=== PATIENT | female | born 1985 | race Caucasian/White ===

== ENCOUNTER 2020-03-12 15:44 | Inpatient (IN) | payer SELFPAY ==
[2020-03-12 17:30] VITALS: BP 146/86
[2020-03-12] MEDS: NS 1,000 ML IV SCH (18:14)
[2020-03-12] MEDS ORDERED: PERCOCET 5MG/325MG TAB PO PRN ×2 (18:30)
[2020-03-12 19:04] LABS: BASO % 0.1 % (0.0-1.0); EOS % 0.1 % (0.0-3.0); HEMOGLOBIN 7.3 g/dl (12.0-15.5); LYMPH # 2.3 10^3/uL (1.5-5.0); MEAN CORPUSCULAR HGB CONC 33.2 g/dl (32.0-36.5); MEAN CORPUSCULAR VOLUME 90.5 fl (80.0-96.0); MONO # 1.4 10^3/uL (0.0-0.8); MONO % 9.1 % (0.0-5.0); NEUTROPHILS # 11.7 10^3/uL (1.5-8.5); NEUTROPHILS % 75.2 % (36.0-66.0); RED BLOOD COUNT 2.43 10^6/uL (4.00-5.40); WHITE BLOOD COUNT 15.6 10^3/uL (4.0-10.0)
[2020-03-12 19:14] LABS: INR 0.92; PROTHROMBIN TIME 12.5 SECONDS (12.5-14.3)
[2020-03-12 19:15] LABS: FIBRINOGEN 295 MG/DL (221-452)
[2020-03-12 19:22] LABS: ALBUMIN 1.9 GM/DL (3.2-5.2); BILIRUBIN,TOTAL 0.7 MG/DL (0.2-1.0); CALCIUM LEVEL 8.1 MG/DL (8.5-10.1); CREATININE FOR GFR 1.93 MG/DL (0.55-1.30); GLOMERULAR FILTRATION RATE 31.5 (>60); POTASSIUM SERUM 4.3 MEQ/L (3.5-5.1); TOTAL PROTEIN 4.3 GM/DL (6.4-8.2)
[2020-03-12 19:34] LABS: PLATELET COUNT, AUTOMATED 95 10^3/uL (150-450)
[2020-03-12 19:38] LABS: D-DIMER QUANT > 4000 ng/ml (<500)
[2020-03-12 20:00] VITALS: BP 160/85
[2020-03-12 22:04] LABS: MAGNESIUM LEVEL 2.6 MG/DL (1.8-2.4)
[2020-03-13] VITALS (17 sets, daily range): BP systolic 136–200; BP diastolic 74–110
[2020-03-13 00:45] LABS: BASO % 0.1 % (0.0-1.0); EOS % 0.1 % (0.0-3.0); LYMPH # 2.2 10^3/uL (1.5-5.0); LYMPH % 14.1 % (24.0-44.0); MEAN CORPUSCULAR HEMOGLOBIN 29.8 pg (27.0-33.0); MEAN CORPUSCULAR HGB CONC 32.9 g/dl (32.0-36.5); MEAN CORPUSCULAR VOLUME 90.8 fl (80.0-96.0); MONO # 1.3 10^3/uL (0.0-0.8); NEUTROPHILS % 77.3 % (36.0-66.0); RED BLOOD COUNT 2.28 10^6/uL (4.00-5.40); WHITE BLOOD COUNT 15.6 10^3/uL (4.0-10.0)
[2020-03-13 00:50] LABS: HEMATOCRIT 20.7 % (36.0-47.0); PLATELET COUNT, AUTOMATED 87 10^3/uL (150-450)
[2020-03-13 00:54] LABS: INR 0.91; PARTIAL THROMBOPLASTIN TIME 23.6 SECONDS (24.2-38.5); PROTHROMBIN TIME 12.4 SECONDS (12.5-14.3)
[2020-03-13 00:59] LABS: HEMOGLOBIN 6.8 g/dl (12.0-15.5)
[2020-03-13] MEDS: LABETALOL 200 MG TAB PO SCH ×4 (03:41→19:46)
[2020-03-13] MEDS: NS 1,000 ML IV SCH (09:08)
--- NOTE | 2020-03-13 10:07 | HPEPDOC ---
General Date of Admission Mar 12, 2020 at 17:28 Date of Service: Mar 12, 2020 Chief Complaint The patient is a 35-year-old female admitted with a reason for visit of Severe Pre Eclampsia,S/P Abruption W/ Blood Loss. Source: Patient, RN/MD History of Present Illness Consultation report: Consultation requested by Dr Varghese Consultation for : DIC HPI: 35 year old female with PMH of chronic hypertension, obesity, pre- eclampsia, gestational DM, depression had an abruptio placentae yesterday and had emergent C/S at [facility] at 8:30 pm at 35 weeks with loss of about 1500 cc of blood. She received 4 units of prbc, 1 unit of FFP and 1 unit of platelet and 5 liters of IVf. She was transferred her under Dr Arita's service for HELLP and possible early DIC after severe blood loss s/p complete abruption. Hospitalist consulted for management of possible DIC. Patient complained of appropriate pain at the C/S site about 4/10 dull aching. Denied any nausea or vomiting, has not passed flatus yet. Home Medications Scheduled Amlodipine Besylate (Amlodipine Besylate) 10 Mg Tablet, 10 MG PO DAILY Hydralazine HCl (Hydralazine HCl) 50 Mg Tablet, 50 MG PO QID Labetalol HCl (Labetalol HCl) 200 Mg Tablet, 400 MG PO TID Scheduled PRN Ibuprofen (Ibuprofen) 600 Mg Tablet, 1 TAB PO TIDP PRN for pain with food Allergies Coded Allergies: No Known Allergies (Unverified , 03/13/20) Past Medical History Medical History Chronic hypertension Depression Obesity preecclampsia gestational DM. Family History Significant Family History: Hypertension Social History * Smoker: Denies Alcohol: Denies Drugs: denies A-FIB/CHADSVASC A-FIB History Current/History of A-Fib/PAF?: No Review of Systems Constitutional: Denies: Chills, Fever, Night Sweats Eyes: Denies: Pain, Vision change ENT: Denies: Head Aches, Ear Pain, Dysphagia Skin: Denies: Rash, Lesions, Breakdown Pulmonary: Denies: Dyspnea, Cough Cardiovascular: Denies: Chest Pain, Palpitations, Orthopnea, Paroxysmal Noc. Dyspnea, Lt Headedness Gastrointestinal: Reports: Abdominal Pain; Denies: Nausea, Vomiting, Diarrhea Genitourinary: Denies: Dysuria, Frequency, Incontinence, Retention Hematologic: Denies: Bruising, Bleeding Excessively, Petecchia, Purpura Musculoskeletal: Denies: Neck Pain, Back Pain, Joint Pain, Muscle Pain, Spasms Physical Examination General Exam: Positive: Alert, Cooperative, No Acute Distress Eye Exam: Positive: PERRLA, Conjunctiva & lids normal, EOMI; Negative: Sclera icteric Neck Exam: Positive: Supple; Negative: JVD, thyromegaly Chest Exam: Positive: Clear to auscultation, Normal air movement Heart Exam: Positive: Rate Normal, Regular Rhythm, Normal S1, Normal S2; Negative: Murmurs, Rubs Abdomen Exam: Positive: BS Hypoactive, Soft; Negative: Tenderness, Hepatospenomegaly Extremity Exam: Positive: Normal pulses; Negative: Clubbing, Cyanosis, Edema Skin Exam: Positive: Nl turgor and temperature; Negative: Breakdown, Lesion Psych Exam: Positive: Mental status NL, Mood NL, Oriented x 3 Vital Signs Vital Signs Date Time Temp Pulse Resp B/P (MAP) Pulse Ox O2 Delivery O2 Flow Rate FiO2 03/12/20 17:30 98.1 109 20 146/86 (106) 98 Room Air Laboratory Data Labs 24H Laboratory Tests 2 03/12/20 18:43: Immature Granulocyte % (Auto) 0.5, Neutrophils (%) (Auto) 75.2H, Lymphocytes (%) (Auto) 15.0L, Monocytes (%) (Auto) 9.1H, Eosinophils (%) (Auto) 0.1, Basophils (%) (Auto) 0.1, Neutrophils # (Auto) 11.7H, Lymphocytes # (Auto) 2.3, Monocytes # (Auto) 1.4H, Eosinophils # (Auto) 0.0, Basophils # (Auto) 0.0, Nucleated Red Blood Cells % (auto) 0.0, Immature Platelet Fraction 3.7, Prothrombin Time 12.5, Prothromb Time International Ratio 0.92, Activated Partial Thromboplast Time 21.0L, Fibrinogen 295, D-Dimer, Quantitative > 4000H, Anion Gap 7L, Glomerular Filtration Rate 31.5L, Calcium Level 8.1L, Whole Blood Ionized Calcium 4.5, Total Bilirubin 0.7, Aspartate Amino Transf (AST/SGOT) 24, Alanine Aminotransferase (ALT/SGPT) 26, Alkaline Phosphatase 75, Total Protein 4.3L, Albumin 1.9L, Albumin/Globulin Ratio 0.8L CBC/BMP Laboratory Tests 03/12/20 18:43 Assessment/Plan 35 year old female with PMH of chronic hypertension, obesity, pre- eclampsia, gestational DM, depression had an abruptio placentae yesterday and had emergent C/S at [facility] at 8:30 pm at 35 weeks with loss of about 1500 cc of blood. She received 4 units of prbc, 1 unit of FFP and 1 unit of platelet and 5 liters of IVf. She was transferred her under Dr Arita's service for HELLP and possible early DIC after severe blood loss s/p complete abruption. Possible HELLP/DIC labs ordered CBC, CMP, Haptoglobin, LDH, Magnesium, pt/ptt/ fibrinogen/ FDP transfuse PRBC prn and FFP at needed. Acute blood loss anemia transfuse PRN ADAM due to hypotension and acute blood loss Has tenorio in place continue IVF monitor i/o Chronic hypertension/ Preeclampsia BP acceptable at this time. will restart labetalol and other antihypertensives as needed. Post op day #1 after C/S Plan / VTE VTE Prophylaxis Ordered?: Yes AVIS CHOPRA MD Mar 12, 2020 21:31
[2020-03-13 10:09] LABS: BASO % 0.1 % (0.0-1.0); EOS % 0.2 % (0.0-3.0); HEMATOCRIT 24.7 % (36.0-47.0); HEMOGLOBIN 8.1 g/dl (12.0-15.5); LYMPH # 1.5 10^3/uL (1.5-5.0); LYMPH % 11.6 % (24.0-44.0); MEAN CORPUSCULAR HEMOGLOBIN 29.2 pg (27.0-33.0); MEAN CORPUSCULAR HGB CONC 32.8 g/dl (32.0-36.5); MEAN CORPUSCULAR VOLUME 89.2 fl (80.0-96.0); MONO % 7.2 % (0.0-5.0); NEUTROPHILS # 10.7 10^3/uL (1.5-8.5); NEUTROPHILS % 80.1 % (36.0-66.0); RED BLOOD COUNT 2.77 10^6/uL (4.00-5.40); WHITE BLOOD COUNT 13.3 10^3/uL (4.0-10.0)
[2020-03-13 10:11] LABS: PLATELET COUNT, AUTOMATED 91 10^3/uL (150-450)
--- NOTE | 2020-03-13 10:15 | IPNPDOC ---
Subjective Date Seen The patient was seen on 03/13/20. Subjective Chief Complaint/HPI No complaints this morning. feeling well, having very good urine output. Objective Physical Examination General Exam: Positive: Alert, Cooperative, No Acute Distress Eye Exam: Positive: PERRLA, Conjunctiva & lids normal, EOMI; Negative: Sclera icteric Neck Exam: Positive: Supple; Negative: JVD, thyromegaly Chest Exam: Positive: Clear to auscultation, Normal air movement Heart Exam: Positive: Rate Normal, Regular Rhythm, Normal S1, Normal S2; Negative: Murmurs, Rubs Abdomen Exam: Positive: BS Hypoactive, Soft; Negative: Tenderness, Hepatospenomegaly Extremity Exam: Positive: Normal pulses; Negative: Clubbing, Cyanosis, Edema Skin Exam: Positive: Nl turgor and temperature; Negative: Breakdown, Lesion Psych Exam: Positive: Mental status NL, Mood NL, Oriented x 3 Assessment /Plan Assessment 35 year old female with PMH of chronic hypertension, obesity, pre- eclampsia, gestational DM, depression had an abruptio placentae yesterday and had emergent C/S at [facility] at 8:30 pm at 35 weeks with loss of about 1500 cc of blood. She received 4 units of prbc, 1 unit of FFP and 1 unit of platelet and 5 liters of IVf. She was transferred her under Dr Arita's service for HELLP and possible early DIC after severe blood loss s/p complete abruption. Possible HELLP/DIC Now seems to have resolved. No signs of Hemolysis except for elevated LDH. Haptoglobin in progress. lever enzymes are normal Pt/ATT and fibrinogen are normal. transfuse PRBC prn and FFP at needed. Acute blood loss anemia received total of 6 units of prbc. ADAM due to hypotension and acute blood loss Has tenorio in place continue IVF monitor i/o Chronic hypertension/preeclampsia labetalol and amlodipine Post op day #2 after C/S Dr Arita is following. Plan/VTE VTE Prophylaxis Ordered?: Yes VS, I&O, 24H, Fishbone Vital Signs/I&O Vital Signs Date Time Temp Pulse Resp B/P (MAP) Pulse Ox O2 Delivery O2 Flow Rate FiO2 03/13/20 09:11 98.1 96 18 188/98 96 Room Air I&O- Last 24 Hours up to 6 AM 03/13/20 05:59 Intake Total 300 ml Output Total 2025 ml Balance -1725 ml Laboratory Data 24H LABS Laboratory Tests 2 03/12/20 18:43: Immature Granulocyte % (Auto) 0.5, Neutrophils (%) (Auto) 75.2H, Lymphocytes (%) (Auto) 15.0L, Monocytes (%) (Auto) 9.1H, Eosinophils (%) (Auto) 0.1, Basophils (%) (Auto) 0.1, Neutrophils # (Auto) 11.7H, Lymphocytes # (Auto) 2.3, Monocytes # (Auto) 1.4H, Eosinophils # (Auto) 0.0, Basophils # (Auto) 0.0, Nucleated Red Blood Cells % (auto) 0.0, Immature Platelet Fraction 3.7, Prothrombin Time 12.5, Prothromb Time International Ratio 0.92, Activated Partial Thromboplast Time 21.0L, Fibrinogen 295, D-Dimer, Quantitative > 4000H, Anion Gap 7L, Glomerular Filtration Rate 31.5L, Calcium Level 8.1L, Whole Blood Ionized Calcium 4.5, Magnesium Level 2.6H, Total Bilirubin 0.7, Aspartate Amino Transf (AST/SGOT) 24, Alanine Aminotransferase (ALT/SGPT) 26, Alkaline Phosphatase 75, Lactate Dehydrogenase 310H, Total Protein 4.3L, Albumin 1.9L, Albumin/Globulin Ratio 0.8L 03/12/20 18:45: 03/12/20 21:17: Coronavirus (COVID-19)(PCR) NEGATIVE 03/13/20 00:21: Immature Granulocyte % (Auto) 0.4, Neutrophils (%) (Auto) 77.3H, Lymphocytes (%) (Auto) 14.1L, Monocytes (%) (Auto) 8.0H, Eosinophils (%) (Auto) 0.1, Basophils (%) (Auto) 0.1, Neutrophils # (Auto) 12.0H, Lymphocytes # (Auto) 2.2, Monocytes # (Auto) 1.3H, Eosinophils # (Auto) 0.0, Basophils # (Auto) 0.0, Nucleated Red Blood Cells % (auto) 0.0, Prothrombin Time 12.4, Prothromb Time International Ratio 0.91, Activated Partial Thromboplast Time 23.6L 03/13/20 09:57: CBC/BMP Laboratory Tests 03/12/20 18:43 03/13/20 00:21 AVIS CHOPRA MD Mar 13, 2020 10:15
[2020-03-13 10:20] LABS: INR 0.96
[2020-03-13 10:21] LABS: PARTIAL THROMBOPLASTIN TIME 25.3 SECONDS (24.2-38.5)
[2020-03-13 11:00] LABS: ALBUMIN 1.9 GM/DL (3.2-5.2); BILIRUBIN,TOTAL 0.5 MG/DL (0.2-1.0); CALCIUM LEVEL 8.3 MG/DL (8.5-10.1); CREATININE FOR GFR 1.53 MG/DL (0.55-1.30); GLOMERULAR FILTRATION RATE 41.1 (>60); POTASSIUM SERUM 4.3 MEQ/L (3.5-5.1); TOTAL PROTEIN 4.5 GM/DL (6.4-8.2)
[2020-03-13] MEDS ORDERED: amLODIPine 10 MG TAB PO ONE (11:15)
[2020-03-13] MEDS ORDERED: SLF 3 ML SYR IV PRN (11:15)
[2020-03-13] MEDS ORDERED: hydrALAZINE 20MG/ML 1ML VIAL (J0360 PER 20MG) IV SCH (13:00)
[2020-03-13] MEDS ORDERED: SIMETHICONE 80 MG CHEW TAB PO PRN (13:00)
[2020-03-13] MEDS: SLF 3 ML SYR IV SCH ×2 (13:13→19:47)
--- NOTE | 2020-03-13 13:15 | IPNPDOC ---
Subjective Date Seen The patient was seen on 03/13/20. Subjective Chief Complaint/HPI Hospitalist consult appreciated. 35 y/o female post emergent c/s for abruption placentae, transferred from [facility] for further evaluation for DIC and bleeding. Pt had a total of 6 Units of PRBC lina 1 FFP and 1 unit of platelet. She is curently doing Ok she was seen in the chair eating. No SOB , Ambrosio or blurred vision. Lochia is minimal and no active lesions. No BM but passing flatus. Labs reviewed- improving BP elevated on labetalol and amilodepine PE: Abdomen: soft NT/ND +BS Dressing intact Ext: No c/c/e A/P: 1) Post c/s for abruptio placentae POD#2- Doing well. Continue post op care- consider d/c home in AM of 03/14/20 if remain stable 2) Acute bleeding/ anemia- Post transfusion doing well- F/u H/hH as ordered by hospitalist 3) Chronic HTN with elevated BP on two meds- Continue med as per hospitalist. Consider IV labetalol to control acute elevation in BP. Objective Physical Examination General Exam: Positive: Alert, Cooperative, No Acute Distress Eye Exam: Positive: PERRLA, Conjunctiva & lids normal, EOMI; Negative: Sclera icteric Neck Exam: Positive: Supple; Negative: JVD, thyromegaly Chest Exam: Positive: Clear to auscultation, Normal air movement Heart Exam: Positive: Rate Normal, Regular Rhythm, Normal S1, Normal S2; Negative: Murmurs, Rubs Abdomen Exam: Positive: BS Hypoactive, Soft; Negative: Tenderness, Hepatospenomegaly Extremity Exam: Positive: Normal pulses; Negative: Clubbing, Cyanosis, Edema Skin Exam: Positive: Nl turgor and temperature; Negative: Breakdown, Lesion Psych Exam: Positive: Mental status NL, Mood NL, Oriented x 3 Assessment /Plan Plan/VTE VTE Prophylaxis Ordered?: Yes VS, I&O, 24H, Fishbone Vital Signs/I&O Vital Signs Date Time Temp Pulse Resp B/P (MAP) Pulse Ox O2 Delivery O2 Flow Rate FiO2 03/13/20 12:23 98.3 90 18 180/110 (133) 03/13/20 09:11 96 Room Air I&O- Last 24 Hours up to 6 AM 03/13/20 05:59 Intake Total 300 ml Output Total 2025 ml Balance -1725 ml Laboratory Data 24H LABS Laboratory Tests 2 03/12/20 18:43: Immature Granulocyte % (Auto) 0.5, Neutrophils (%) (Auto) 75.2H, Lymphocytes (%) (Auto) 15.0L, Monocytes (%) (Auto) 9.1H, Eosinophils (%) (Auto) 0.1, Basophils (%) (Auto) 0.1, Neutrophils # (Auto) 11.7H, Lymphocytes # (Auto) 2.3, Monocytes # (Auto) 1.4H, Eosinophils # (Auto) 0.0, Basophils # (Auto) 0.0, Nucleated Red Blood Cells % (auto) 0.0, Immature Platelet Fraction 3.7, Prothrombin Time 12.5, Prothromb Time International Ratio 0.92, Activated Partial Thromboplast Time 21.0L, Fibrinogen 295, D-Dimer, Quantitative > 4000H, Anion Gap 7L, Glomerular Filtration Rate 31.5L, Calcium Level 8.1L, Whole Blood Ionized Calcium 4.5, Magnesium Level 2.6H, Total Bilirubin 0.7, Aspartate Amino Transf (AST/SGOT) 24, Alanine Aminotransferase (ALT/SGPT) 26, Alkaline Phosphatase 75, Lactate Dehydrogenase 310H, Total Protein 4.3L, Albumin 1.9L, Albumin/Globulin Ratio 0.8L 03/12/20 18:45: 03/12/20 21:17: Coronavirus (COVID-19)(PCR) NEGATIVE 03/13/20 00:21: Immature Granulocyte % (Auto) 0.4, Neutrophils (%) (Auto) 77.3H, Lymphocytes (%) (Auto) 14.1L, Monocytes (%) (Auto) 8.0H, Eosinophils (%) (Auto) 0.1, Basophils (%) (Auto) 0.1, Neutrophils # (Auto) 12.0H, Lymphocytes # (Auto) 2.2, Monocytes # (Auto) 1.3H, Eosinophils # (Auto) 0.0, Basophils # (Auto) 0.0, Nucleated Red Blood Cells % (auto) 0.0, Prothrombin Time 12.4, Prothromb Time International Ratio 0.91, Activated Partial Thromboplast Time 23.6L 03/13/20 09:57: Immature Granulocyte % (Auto) 0.8, Neutrophils (%) (Auto) 80.1H, Lymphocytes (%) (Auto) 11.6L, Monocytes (%) (Auto) 7.2H, Eosinophils (%) (Auto) 0.2, Basophils (%) (Auto) 0.1, Neutrophils # (Auto) 10.7H, Lymphocytes # (Auto) 1.5, Monocytes # (Auto) 1.0H, Eosinophils # (Auto) 0.0, Basophils # (Auto) 0.0, Nucleated Red Blood Cells % (auto) 0.0, Prothrombin Time 13.0, Prothromb Time International Ratio 0.96, Activated Partial Thromboplast Time 25.3, Fibrinogen 403, Anion Gap 5L, Glomerular Filtration Rate 41.1L, Calcium Level 8.3L, Total Bilirubin 0.5, Aspartate Amino Transf (AST/SGOT) 22, Alanine Aminotransferase (ALT/SGPT) 23, Alkaline Phosphatase 75, Total Protein 4.5L, Albumin 1.9L, Albumin/Globulin R atio 0.7L CBC/BMP Laboratory Tests 03/12/20 18:43 03/13/20 00:21 03/13/20 09:57 Bhavesh Arita DO Mar 13, 2020 13:15
[2020-03-13] MEDS ORDERED: hydrALAZINE 20MG/ML 1ML VIAL (J0360 PER 20MG) IV STA (13:27)
[2020-03-13] MEDS ORDERED: LABETALOL 100MG/20ML VIAL IV STA (13:28)
--- NOTE | 2020-03-13 15:13 | HPE ---
DATE OF ADMISSION: HISTORY OF PRESENT ILLNESS: Annie is a 35-year-old female, 6, who is admitted through [facility] after presenting with severe preeclampsia and had a complete placental abruption. She had immediate emergent section with significant blood loss and was then monitored in the hospital. She was showing signs of DIC and worsening preeclampsia. At this point, I was consulted and the decision was made to accept the patient as a transfer from [facility] to here for further monitoring and evaluation. Upon her arrival here at [facility], she had four units of packed red blood cells, one unit of fresh frozen plasma, and one unit of platelets, with 5 liters of IV fluids. Upon my evaluation, she was found to be in stable condition with some elevated labs for possible DIC. Full consult was obtained from the Hospitalist to help co-manage her possible DIC and acute blood loss. PAST MEDICAL HISTORY: 1. Chronic hypertension. 2. Depression. 3. Obesity. 4. Preeclampsia. 5. Diabetes. PAST SURGICAL HISTORY: Denies. SOCIAL HISTORY: Denies any alcohol or drug or cigarette smoking. She is a [employer] lady. She was receiving her obstetric care through a care team assistant out in her community. FAMILY HISTORY: High blood pressure. LABORATORY: On admission in the hospital, her hemoglobin and hematocrit was 7.3/22, with a platelet of 95, and white count 15.6. Her electrolytes were within normal limits. She had a PT of 12.5, PTT of 0.92. PHYSICAL EXAMINATION: GENERAL: Obese female in no acute distress. ABDOMEN: She had an abdominal incision from a section. The dressing was on and appeared to be intact. She had no excessive abdominal pain. The pain was significant with a recent section. No rebound, no guarding. EXTREMITIES: No clubbing, cyanosis, or edema. ASSESSMENT: 1. Complete placental abruption status post an emergent section. 2. Acute bleeding with post four units of blood transfusion, cannot rule out DIC or continued bleeding. 3. Chronic hypertension, currently stable. 4. Obesity. 5. Diabetes. PLAN: The patient will be admitted to PCU for observation. Hospitalist consult called to help co-manage her medical issues and possible DIC. Will continue to follow the patient for her postoperative care. She is quite aware that there is a possibility that she might need to be operated on again and if needed for acute blood loss, we will bring her back to the OR. At this point, she will be continually monitored with serial labs. Again, Hospitalist consultation appreciated. AFTAB
[2020-03-13] MEDS: hydrALAZINE 20MG/ML 1ML VIAL (J0360 PER 20MG) IV SCH ×2 (16:38→19:46)
[2020-03-13 18:11] LABS: BASO % 0.1 % (0.0-1.0); EOS % 0.3 % (0.0-3.0); HEMATOCRIT 24.4 % (36.0-47.0); HEMOGLOBIN 7.9 g/dl (12.0-15.5); LYMPH # 1.8 10^3/uL (1.5-5.0); LYMPH % 12.3 % (24.0-44.0); MEAN CORPUSCULAR HEMOGLOBIN 29.3 pg (27.0-33.0); MEAN CORPUSCULAR HGB CONC 32.4 g/dl (32.0-36.5); MEAN CORPUSCULAR VOLUME 90.4 fl (80.0-96.0); NEUTROPHILS # 11.8 10^3/uL (1.5-8.5); NEUTROPHILS % 79.4 % (36.0-66.0); WHITE BLOOD COUNT 14.8 10^3/uL (4.0-10.0)
[2020-03-13 18:15] LABS: PLATELET COUNT, AUTOMATED 99 10^3/uL (150-450)
[2020-03-13 18:23] LABS: INR 0.94; PROTHROMBIN TIME 12.8 SECONDS (12.5-14.3)
[2020-03-13 18:24] LABS: PARTIAL THROMBOPLASTIN TIME 26.4 SECONDS (24.2-38.5)
[2020-03-14] VITALS (7 sets, daily range): BP systolic 140–166; BP diastolic 80–98
[2020-03-14 00:10] LABS: BASO % 0.1 % (0.0-1.0); EOS # 0.1 10^3/uL (0.0-0.5); EOS % 0.9 % (0.0-3.0); HEMATOCRIT 24.2 % (36.0-47.0); HEMOGLOBIN 7.7 g/dl (12.0-15.5); LYMPH # 2.2 10^3/uL (1.5-5.0); LYMPH % 16.1 % (24.0-44.0); MEAN CORPUSCULAR HEMOGLOBIN 29.1 pg (27.0-33.0); MEAN CORPUSCULAR HGB CONC 31.8 g/dl (32.0-36.5); MEAN CORPUSCULAR VOLUME 91.3 fl (80.0-96.0); MONO % 7.2 % (0.0-5.0); NEUTROPHILS # 10.1 10^3/uL (1.5-8.5); NEUTROPHILS % 74.2 % (36.0-66.0); RED BLOOD COUNT 2.65 10^6/uL (4.00-5.40); WHITE BLOOD COUNT 13.6 10^3/uL (4.0-10.0)
[2020-03-14] MEDS: hydrALAZINE 20MG/ML 1ML VIAL (J0360 PER 20MG) IV SCH ×2 (00:26→04:39)
[2020-03-14 00:29] LABS: PLATELET COUNT, AUTOMATED 97 10^3/uL (150-450)
[2020-03-14] MEDS: SLF 3 ML SYR IV SCH ×3 (04:40→22:40)
[2020-03-14 05:40] LABS: BASO % 0.2 % (0.0-1.0); EOS # 0.2 10^3/uL (0.0-0.5); EOS % 1.7 % (0.0-3.0); HEMATOCRIT 23.8 % (36.0-47.0); HEMOGLOBIN 7.8 g/dl (12.0-15.5); LYMPH # 1.8 10^3/uL (1.5-5.0); LYMPH % 14.6 % (24.0-44.0); MEAN CORPUSCULAR HEMOGLOBIN 29.7 pg (27.0-33.0); MEAN CORPUSCULAR HGB CONC 32.8 g/dl (32.0-36.5); MEAN CORPUSCULAR VOLUME 90.5 fl (80.0-96.0); MONO # 0.8 10^3/uL (0.0-0.8); MONO % 6.9 % (0.0-5.0); NEUTROPHILS # 9.3 10^3/uL (1.5-8.5); NEUTROPHILS % 75.9 % (36.0-66.0); PLATELET COUNT, AUTOMATED 105 10^3/uL (150-450); RED BLOOD COUNT 2.63 10^6/uL (4.00-5.40); WHITE BLOOD COUNT 12.2 10^3/uL (4.0-10.0)
[2020-03-14 05:51] LABS: INR 0.88; PROTHROMBIN TIME 12.1 SECONDS (12.5-14.3)
[2020-03-14 05:52] LABS: PARTIAL THROMBOPLASTIN TIME 27.7 SECONDS (24.2-38.5)
[2020-03-14 06:11] LABS: ALBUMIN 2.1 GM/DL (3.2-5.2); BILIRUBIN,TOTAL 0.5 MG/DL (0.2-1.0); CALCIUM LEVEL 8.8 MG/DL (8.5-10.1); CREATININE FOR GFR 1.25 MG/DL (0.55-1.30); GLOMERULAR FILTRATION RATE 51.9 (>60); POTASSIUM SERUM 3.9 MEQ/L (3.5-5.1); TOTAL PROTEIN 5.4 GM/DL (6.4-8.2)
[2020-03-14] MEDS ORDERED: hydrALAZINE 20MG/ML 1ML VIAL (J0360 PER 20MG) IV PRN (07:45)
--- NOTE | 2020-03-14 07:58 | IPNPDOC ---
Subjective Date Seen The patient was seen on 03/14/20. Subjective Chief Complaint/HPI No complaints this morning. Feeling well. Eager to go home. Objective Physical Examination General Exam: Positive: Alert, Cooperative, No Acute Distress Eye Exam: Positive: PERRLA, Conjunctiva & lids normal, EOMI; Negative: Sclera icteric Neck Exam: Positive: Supple; Negative: JVD, thyromegaly Chest Exam: Positive: Clear to auscultation, Normal air movement Heart Exam: Positive: Rate Normal, Regular Rhythm, Normal S1, Normal S2; Negative: Murmurs, Rubs Abdomen Exam: Positive: BS Hypoactive, Soft; Negative: Tenderness, Hepatospenomegaly Extremity Exam: Positive: Normal pulses; Negative: Clubbing, Cyanosis, Edema Skin Exam: Positive: Nl turgor and temperature; Negative: Breakdown, Lesion Psych Exam: Positive: Mental status NL, Mood NL, Oriented x 3 Assessment /Plan Assessment 35 year old female with PMH of chronic hypertension, obesity, pre- eclampsia, gestational DM, depression had an abruptio placentae yesterday and had emergent C/S at [facility] at 8:30 pm at 35 weeks with loss of about 1500 cc of blood. She received 4 units of prbc, 1 unit of FFP and 1 unit of platelet and 5 liters of IVf. She was transferred her under Dr Arita's service for HELLP and possible early DIC after severe blood loss s/p complete abruption. Possible HELLP/DIC Have resolved. Acute blood loss anemia received total of 6 units of prbc. HB at 7.8 and stable. ADAM resolved Chronic hypertension/preecclampsia acceptable control at this time can continue labetelol 400 tid, amlodipine 10 daily and hydralazine 50mg qid Meds need to be readjusted in follow up visit as outpatient with OB/ PMD. Post op day #3 after C/S Dr Arita is following. Patient doing well from medical stand point. Hospitalist will sign off. Thank you for allowing me to participate in this grabiel patient's care. Please reconsult if needed. Plan/VTE VTE Prophylaxis Ordered?: Yes VS, I&O, 24H, Fishbone Vital Signs/I&O Vital Signs Date Time Temp Pulse Resp B/P (MAP) Pulse Ox O2 Delivery O2 Flow Rate FiO2 03/14/20 07:48 97.6 97 18 160/98 (118) 97 Room Air I&O- Last 24 Hours up to 6 AM 03/14/20 06:00 Intake Total 2480 ml Output Total 5775 ml Balance -3295 ml Laboratory Data 24H LABS Laboratory Tests 2 03/13/20 09:57: Immature Granulocyte % (Auto) 0.8, Neutrophils (%) (Auto) 80.1H, Lymphocytes (%) (Auto) 11.6L, Monocytes (%) (Auto) 7.2H, Eosinophils (%) (Auto) 0.2, Basophils (%) (Auto) 0.1, Neutrophils # (Auto) 10.7H, Lymphocytes # (Auto) 1.5, Monocytes # (Auto) 1.0H, Eosinophils # (Auto) 0.0, Basophils # (Auto) 0.0, Nucleated Red Blood Cells % (auto) 0.0, Prothrombin Time 13.0, Prothromb Time International Ratio 0.96, Activated Partial Thromboplast Time 25.3, Fibrinogen 403, Anion Gap 5L, Glomerular Filtration Rate 41.1L, Calcium Level 8.3L, Total Bilirubin 0.5, Aspartate Amino Transf (AST/SGOT) 22, Alanine Aminotransferase (ALT/SGPT) 23, Alkaline Phosphatase 75, Total Protein 4.5L, Albumin 1.9L, Albumin/Globulin Ratio 0.7L 03/13/20 17:45: Immature Granulocyte % (Auto) 0.9, Neutrophils (%) (Auto) 79.4H, Lymphocytes (%) (Auto) 12.3L, Monocytes (%) (Auto) 7.0H, Eosinophils (%) (Auto) 0.3, Basophils (%) (Auto) 0.1, Neutrophils # (Auto) 11.8H, Lymphocytes # (Auto) 1.8, Monocytes # (Auto) 1.0H, Eosinophils # (Auto) 0.0, Basophils # (Auto) 0.0, Nucleated Red Blood Cells % (auto) 0.0, Prothrombin Time 12.8, Prothromb Time International Ratio 0.94, Activated Partial Thromboplast Time 26.4 03/14/20 00:00: Immature Granulocyte % (Auto) 1.5, Neutrophils (%) (Auto) 74.2H, Lymphocytes (%) (Auto) 16.1L, Monocytes (%) (Auto) 7.2H, Eosinophils (%) (Auto) 0.9, Basophils (%) (Auto) 0.1, Neutrophils # (Auto) 10.1H, Lymphocytes # (Auto) 2.2, Monocytes # (Auto) 1.0H, Eosinophils # (Auto) 0.1, Basophils # (Auto) 0.0, Nucleated Red Blood Cells % (auto) 0.1H, Immature Platelet Fraction 2.6 03/14/20 05:27: Immature Granulocyte % (Auto) 0.7, Neutrophils (%) (Auto) 75.9H, Lymphocytes (%) (Auto) 14.6L, Monocytes (%) (Auto) 6.9H, Eosinophils (%) (Auto) 1.7, Basophils (%) (Auto) 0.2, Neutrophils # (Auto) 9.3H, Lymphocytes # (Auto) 1.8, Monocytes # (Auto) 0.8, Eosinophils # (Auto) 0.2, Basophils # (Auto) 0.0, Nucleated Red Blood Cells % (auto) 0.2H, Prothrombin Time 12.1, Prothromb Time International Ratio 0.88, Activated Partial Thromboplast Time 27.7, Anion Gap 6L, Glomerular Filtration Rate 51.9L, Calcium Level 8.8, Total Bilirubin 0.5, Aspartate Amino Transf (AST/SGOT) 27, Alanine Aminotransferase (ALT/SGPT) 27, Alkaline Phosphatase 82, Total Protein 5.4L, Albumin 2.1L, Albumin/Globulin Ratio 0.6L CBC/BMP Laboratory Tests 03/13/20 09:57 03/13/20 17:45 03/14/20 00:00 03/14/20 05:27 AVIS CHOPRA MD Mar 14, 2020 07:58
[2020-03-14] MEDS: amLODIPine 10 MG TAB PO SCH (08:40)
[2020-03-14] MEDS: LABETALOL 200 MG TAB PO SCH ×3 (08:40→21:28)
[2020-03-14] MEDS ORDERED: **hydrALAZINE** 50 MG TAB PO SCH ×2 (09:00)
--- NOTE | 2020-03-14 13:35 | IPNPDOC ---
Subjective Date Seen The patient was seen on 03/14/20. Subjective Chief Complaint/HPI acute bleed- stable Events since last encounter Doing well wants to go home but BP not well under control. Pt required IV med to decrease BP and had a BP med change this AM. Her current BP146/86. Pt otherwise doing well. Tolerating po well. H/H stable. N increase abd pain, N/V or HUTCHISON. PE; Abd: soft NT/ND Incison is healing well. Labs and vitals reviewed. Hospitalist note appreciated. Had phone conversation with Dr. Jacinto. Agreed to kkeep pt for another day for better BP control and further monitoring. A/P POD #3 post emergent c/s for abruption/severe pre-eclampsia- Stable Acute blood lost post transfusion- stable. CHTN-not well controlled- Continue meds and monitoring - consider d/c home in AM of 03/15/20 Objective Physical Examination General Exam: Positive: Alert, Cooperative, No Acute Distress Eye Exam: Positive: PERRLA, Conjunctiva & lids normal, EOMI; Negative: Sclera icteric Neck Exam: Positive: Supple; Negative: JVD, thyromegaly Chest Exam: Positive: Clear to auscultation, Normal air movement Heart Exam: Positive: Rate Normal, Regular Rhythm, Normal S1, Normal S2; Negative: Murmurs, Rubs Abdomen Exam: Positive: BS Hypoactive, Soft; Negative: Tenderness, Hepatospenomegaly Extremity Exam: Positive: Normal pulses; Negative: Clubbing, Cyanosis, Edema Skin Exam: Positive: Nl turgor and temperature; Negative: Breakdown, Lesion Psych Exam: Positive: Mental status NL, Mood NL, Oriented x 3 Assessment /Plan Plan/VTE VTE Prophylaxis Ordered?: Yes VS, I&O, 24H, Fishbone Vital Signs/I&O Vital Signs Date Time Temp Pulse Resp B/P (MAP) Pulse Ox O2 Delivery O2 Flow Rate FiO2 03/14/20 12:00 97.8 92 18 146/80 (102) 97 Room Air I&O- Last 24 Hours up to 6 AM 03/14/20 06:00 Intake Total 2480 ml Output Total 5775 ml Balance -3295 ml Laboratory Data 24H LABS Laboratory Tests 2 03/13/20 17:45: Immature Granulocyte % (Auto) 0.9, Neutrophils (%) (Auto) 79.4H, Lymphocytes (%) (Auto) 12.3L, Monocytes (%) (Auto) 7.0H, Eosinophils (%) (Auto) 0.3, Basophils (%) (Auto) 0.1, Neutrophils # (Auto) 11.8H, Lymphocytes # (Auto) 1.8, Monocytes # (Auto) 1.0H, Eosinophils # (Auto) 0.0, Basophils # (Auto) 0.0, Nucleated Red Blood Cells % (auto) 0.0, Prothrombin Time 12.8, Prothromb Time International Ratio 0.94, Activated Partial Thromboplast Time 26.4 03/14/20 00:00: Immature Granulocyte % (Auto) 1.5, Neutrophils (%) (Auto) 74.2H, Lymphocytes (%) (Auto) 16.1L, Monocytes (%) (Auto) 7.2H, Eosinophils (%) (Auto) 0.9, Basophils (%) (Auto) 0.1, Neutrophils # (Auto) 10.1H, Lymphocytes # (Auto) 2.2, Monocytes # (Auto) 1.0H, Eosinophils # (Auto) 0.1, Basophils # (Auto) 0.0, Nucleated Red Blood Cells % (auto) 0.1H, Immature Platelet Fraction 2.6 03/14/20 05:27: Immature Granulocyte % (Auto) 0.7, Neutrophils (%) (Auto) 75.9H, Lymphocytes (%) (Auto) 14.6L, Monocytes (%) (Auto) 6.9H, Eosinophils (%) (Auto) 1.7, Basophils (%) (Auto) 0.2, Neutrophils # (Auto) 9.3H, Lymphocytes # (Auto) 1.8, Monocytes # (Auto) 0.8, Eosinophils # (Auto) 0.2, Basophils # (Auto) 0.0, Nucleated Red Blood Cells % (auto) 0.2H, Prothrombin Time 12.1, Prothromb Time International Ratio 0.88, Activated Partial Thromboplast Time 27.7, Anion Gap 6L, Glomerular Filtration Rate 51.9L, Calcium Level 8.8, Total Bilirubin 0.5, Aspartate Amino Transf (AST/SGOT) 27, Alanine Aminotransferase (ALT/SGPT) 27, Alkaline Phosphatase 82, Total Protein 5.4L, Albumin 2.1L, Albumin/Globulin Ratio 0.6L CBC/BMP Laboratory Tests 03/13/20 17:45 03/14/20 00:00 03/14/20 05:27 Bhavesh Arita DO Mar 14, 2020 13:35
[2020-03-14] MEDS: **hydrALAZINE** 50 MG TAB PO SCH ×3 (14:28→21:29)
[2020-03-14 18:19] LABS: BASO % 0.2 % (0.0-1.0); EOS # 0.4 10^3/uL (0.0-0.5); EOS % 2.9 % (0.0-3.0); HEMATOCRIT 28.3 % (36.0-47.0); HEMOGLOBIN 9.1 g/dl (12.0-15.5); LYMPH # 2.1 10^3/uL (1.5-5.0); LYMPH % 16.1 % (24.0-44.0); MEAN CORPUSCULAR HEMOGLOBIN 29.4 pg (27.0-33.0); MEAN CORPUSCULAR HGB CONC 32.2 g/dl (32.0-36.5); MEAN CORPUSCULAR VOLUME 91.6 fl (80.0-96.0); MONO # 0.8 10^3/uL (0.0-0.8); MONO % 6.3 % (0.0-5.0); NEUTROPHILS # 9.8 10^3/uL (1.5-8.5); NEUTROPHILS % 73.7 % (36.0-66.0); PLATELET COUNT, AUTOMATED 147 10^3/uL (150-450); RED BLOOD COUNT 3.09 10^6/uL (4.00-5.40); WHITE BLOOD COUNT 13.3 10^3/uL (4.0-10.0)
[2020-03-14 18:32] LABS: INR 0.81; PROTHROMBIN TIME 11.4 SECONDS (12.5-14.3)
[2020-03-14 18:33] LABS: PARTIAL THROMBOPLASTIN TIME 24.7 SECONDS (24.2-38.5)
[2020-03-15] VITALS: BP 146/78
[2020-03-15 04:00] VITALS: BP 154/86
[2020-03-15] MEDS: SLF 3 ML SYR IV SCH (05:36)
[2020-03-15 05:40] LABS: BASO % 0.2 % (0.0-1.0); EOS # 0.4 10^3/uL (0.0-0.5); EOS % 4.3 % (0.0-3.0); HEMATOCRIT 25.3 % (36.0-47.0); HEMOGLOBIN 8.2 g/dl (12.0-15.5); LYMPH % 19.9 % (24.0-44.0); MEAN CORPUSCULAR HEMOGLOBIN 29.7 pg (27.0-33.0); MEAN CORPUSCULAR HGB CONC 32.4 g/dl (32.0-36.5); MEAN CORPUSCULAR VOLUME 91.7 fl (80.0-96.0); MONO # 0.7 10^3/uL (0.0-0.8); MONO % 6.8 % (0.0-5.0); NEUTROPHILS # 6.8 10^3/uL (1.5-8.5); NEUTROPHILS % 68.3 % (36.0-66.0); PLATELET COUNT, AUTOMATED 141 10^3/uL (150-450); RED BLOOD COUNT 2.76 10^6/uL (4.00-5.40); WHITE BLOOD COUNT 9.9 10^3/uL (4.0-10.0)
[2020-03-15 06:19] LABS: ALBUMIN 2.2 GM/DL (3.2-5.2); ALT/SGPT 43 U/L (12-78); BILIRUBIN,TOTAL 0.7 MG/DL (0.2-1.0); BLOOD UREA NITROGEN 18 MG/DL (7-18); CALCIUM LEVEL 9.4 MG/DL (8.5-10.1); CARBON DIOXIDE LEVEL 26 MEQ/L (21-32); CHLORIDE LEVEL 104 MEQ/L (98-107); CREATININE FOR GFR 1.09 MG/DL (0.55-1.30); GLOMERULAR FILTRATION RATE > 60.0 (>60); GLUCOSE, FASTING 85 MG/DL (70-100); POTASSIUM SERUM 3.8 MEQ/L (3.5-5.1); SODIUM LEVEL 139 MEQ/L (136-145); TOTAL PROTEIN 6.2 GM/DL (6.4-8.2)
[2020-03-15 08:00] VITALS: BP 172/102
[2020-03-15] MEDS ORDERED: PERCOCET PO (08:42)
--- NOTE | 2020-03-15 08:58 | DS.PDOC ---
Discharge Summary General Date of Admission Mar 12, 2020 at 17:28 Date of Discharge 03/15/20 Attending Physician: Bhavesh Arita DO Specialist/Consultants Involve: AVIS JACINTO MD Discharge Summary PROCEDURES PERFORMED DURING STAY: [Transfusion of two units of PRBC ]. ADMITTING DIAGNOSES: 1. [Severe pre-eclampsia 2. Placental abruption 3. S/P emergency c/s with hemorrhage 4. CHTN 5. Transferred from [facility] for PCU care and r/o DIC]. DISCHARGE DIAGNOSES: 1. [Same]. COMPLICATIONS/CHIEF COMPLAINT: Severe Pre Eclampsia,S/P Abruption W/ Blood Loss. HISTORY OF PRESENT ILLNESS: [35 y/o female admited to [facility] at 35 weeks after presenting with complete abruption. She had emergent c/s with acute blood lost. Received 4 units of PRBC, 1 unit of FFP and 1 unit of Platelets. Because of sings of DIC and possible ongoing bleeding she was transferred to [facility] for further care. While at [facility] hospitalist consult was obtained. She received two more units of PRBC for acute lost. Her H/H after transfusion was stable. She received multiple IV and po meds to help with blood pressure control. Hospitalist Dr. Jacinto managed that portion. From surgical standpoint she remained stable and was cleared for discharged on 03/15/20]. HOSPITAL COURSE: . DISCHARGE MEDICATIONS: Please see below.Dr. Jacinto will write for her BP meds ALLERGIES: Please see below. PHYSICAL EXAMINATION ON DISCHARGE: VITAL SIGNS: Please see below. GENERAL: [WNL] HEENT: [Normal] NECK: [WNL] CARDIOVASCULAR EXAMINATION: [S1S2] RESPIRATORY EXAMINATION: [WNL] ABDOMINAL EXAMINATION: [Soft Nt/ND. Incision clean and dry ] EXTREMITIES: [No C/C/E] SKIN: [wnl] NEUROLOGICAL EXAMINATION: PSYCHIATRIC EXAMINATION: LABORATORY DATA: Please see below. IMAGING: PROGNOSIS: [Good] ACTIVITY: [As tolerated]. DIET: [regular] DISCHARGE PLAN: DISPOSITION: Home. DISCHARGE INSTRUCTIONS: 1. [Keep incision clean and dry]. ITEMS TO FOLLOWUP ON ON OUTPATIENT: 1. [1-[address] [facility]]. DISCHARGE CONDITION: [Stable]. TIME SPENT ON DISCHARGE: Greater than [50 ] minutes. Vital Signs/I&Os Vital Signs Date Time Temp Pulse Resp B/P (MAP) Pulse Ox O2 Delivery O2 Flow Rate FiO2 03/15/20 08:00 97.4 88 16 172/102 (125) 97 Room Air I&O- Last 24 Hours up to 6 AM 03/15/20 05:59 Intake Total 2340 ml Output Total 5100 ml Balance -2760 ml Laboratory Data Labs 24H Laboratory Tests 2 03/14/20 17:47: Immature Granulocyte % (Auto) 0.8, Neutrophils (%) (Auto) 73.7H, Lymphocytes (%) (Auto) 16.1L, Monocytes (%) (Auto) 6.3H, Eosinophils (%) (Auto) 2.9, Basophils (%) (Auto) 0.2, Neutrophils # (Auto) 9.8H, Lymphocytes # (Auto) 2.1, Monocytes # (Auto) 0.8, Eosinophils # (Auto) 0.4, Basophils # (Auto) 0.0, Nucleated Red Blood Cells % (auto) 0.0, Prothrombin Time 11.4L, Prothromb Time International Ratio 0.81, Activated Partial Thromboplast Time 24.7L 03/15/20 04:55: Immature Granulocyte % (Auto) 0.5, Neutrophils (%) (Auto) 68.3H, Lymphocytes (%) (Auto) 19.9L, Monocytes (%) (Auto) 6.8H, Eosinophils (%) (Auto) 4.3H, Basophils (%) (Auto) 0.2, Neutrophils # (Auto) 6.8, Lymphocytes # (Auto) 2.0, Monocytes # (Auto) 0.7, Eosinophils # (Auto) 0.4, Basophils # (Auto) 0.0, Nucleated Red Blood Cells % (auto) 0.0, Anion Gap 9, Glomerular Filtration Rate > 60.0, Calcium Level 9.4, Total Bilirubin 0.7, Aspartate Amino Transf (AST/SGOT) 33, Alanine Aminotransferase (ALT/SGPT) 43, Alkaline Phosphatase 90, Total Protein 6.2L, Albumin 2.2L, Albumin/Globulin Ratio 0.6L CBC/BMP Laboratory Tests 03/14/20 17:47 03/15/20 04:55 Allergies Coded Allergies: No Known Allergies (Unverified , 03/13/20) Bhavesh Arita DO Mar 15, 2020 08:58
[2020-03-15 09:12] VITALS: BP 176/94
[2020-03-15] MEDS: LABETALOL 200 MG TAB PO SCH (09:13)
[2020-03-15 09:14] VITALS: BP 176/94
[2020-03-15] MEDS: **hydrALAZINE** 50 MG TAB PO SCH ×2 (09:14→12:35)
[2020-03-15] MEDS: amLODIPine 10 MG TAB PO SCH (09:14)
[2020-03-15 11:07] VITALS: BP 150/70
[2020-03-15] MEDS ORDERED: AMLO1TAB25 PO (11:43)
[2020-03-15] MEDS ORDERED: LABE20TAB PO (11:43)
[2020-03-15] MEDS ORDERED: HYDR50TA PO (11:43)
[2020-03-15] MEDS ORDERED: IBUP-1022 PO (12:03)
== END 2020-03-15 12:40 | disposition home or self-care (01) | DRG 561 ==
LOC: M PCU 17:28
PROVIDERS: ADMIT Obstetrics & Gynecology; ATTEND Obstetrics & Gynecology
PROC: 30233N1 Transfusion of Nonautologous Red Blood Cells into Peripheral Vein, Percutaneous Approach (ICD-10-PCS; principal; 2020-03-13)
DX: O99.03 Anemia complicating the puerperium (principal); N17.9 Acute kidney failure, unspecified; O14.25 HELLP syndrome, complicating the puerperium; D62 Acute posthemorrhagic anemia

== ENCOUNTER → 2021-06-19 | Outpatient (CLI) | payer SELFPAY ==
[~2021-06-19] MED LIST: AMLO1TAB25 PO; HYDR50TA PO; IBUP-1022 PO; LABE20TAB PO; PERCOCET PO
[2021-06-19 13:19] LABS: BASO % 0.2 % (0.0-1.0); EOS # 0.1 10^3/uL (0.0-0.5); EOS % 0.7 % (0.0-3.0); HEMATOCRIT 37.6 % (36.0-47.0); HEMOGLOBIN 12.1 g/dl (12.0-15.5); LYMPH # 1.7 10^3/uL (1.5-5.0); LYMPH % 14.2 % (24.0-44.0); MEAN CORPUSCULAR HEMOGLOBIN 29.4 pg (27.0-33.0); MEAN CORPUSCULAR HGB CONC 32.2 g/dl (32.0-36.5); MEAN CORPUSCULAR VOLUME 91.3 fl (80.0-96.0); MONO # 0.6 10^3/uL (0.0-0.8); MONO % 4.9 % (2.0-8.0); NEUTROPHILS # 9.7 10^3/uL (1.5-8.5); NEUTROPHILS % 79.6 % (36.0-66.0); PLATELET COUNT, AUTOMATED 333 10^3/uL (150-450); RED BLOOD COUNT 4.12 10^6/uL (4.00-5.40); WHITE BLOOD COUNT 12.1 10^3/uL (4.0-10.0)
[2021-06-19 13:26] LABS: TOTAL PROTEIN,RANDOM URINE 6.1 MG/DL (0.0-12.0)
[2021-06-19 13:52] LABS: ALT/SGPT 24 U/L (12-78); BILIRUBIN,TOTAL 0.3 MG/DL (0.2-1.0); CREATININE FOR GFR 0.58 MG/DL (0.55-1.30); GLOMERULAR FILTRATION RATE > 60.0 (>60); LDH LACTATE DEHYDROGENASE 148 U/L (84-246); URIC ACID 4.3 MG/DL (2.6-6.0)
[2021-06-19 14:50] LABS: HEMOGLOBIN A1c 5.2 %
[2021-06-19 15:02] LABS: GC DNA AMPLIFICATION NEGATIVE (NEGATIVE)
[2021-06-19 17:32] LABS: HIV 1&2 SCREEN CENTAUR NEGATIVE (NEGATIVE)
== END ==
LOC: M PLALAB 11:03
PROVIDERS: ATTEND Advanced Practice Midwife
DX: O10.919 Unspecified pre-existing hypertension complicating pregnancy, unspecified trimester (principal)

== ENCOUNTER → 2021-10-16 | Outpatient (CLI) | payer SELFPAY ==
[2021-10-16 16:31] LABS: HEMATOCRIT 34.3 % (36.0-47.0); HEMOGLOBIN 11.3 g/dl (12.0-15.5); MEAN CORPUSCULAR HEMOGLOBIN 29.9 pg (27.0-33.0); MEAN CORPUSCULAR HGB CONC 32.9 g/dl (32.0-36.5); MEAN CORPUSCULAR VOLUME 90.7 fl (80.0-96.0); PLATELET COUNT, AUTOMATED 251 10^3/uL (150-450); RED BLOOD COUNT 3.78 10^6/uL (4.00-5.40); WHITE BLOOD COUNT 10.5 10^3/uL (4.0-10.0)
[2021-10-16 18:28] LABS: GC DNA AMPLIFICATION NEGATIVE (NEGATIVE)
== END ==
LOC: M PLALAB 14:21
PROVIDERS: ATTEND Obstetrics & Gynecology
DX: O34.211 Maternal care for low transverse scar from previous cesarean delivery (principal)

== ENCOUNTER → 2021-12-18 | Outpatient (REF) | payer SELFPAY | LOC: M SFHCWAGY 13:09 | PROVIDERS: ATTEND Specialist | DX: Z36.85 Encounter for antenatal screening for Streptococcus B (principal) ==